=== PATIENT | male | born 1940 | race Caucasian/White ===

== ENCOUNTER → 2020-12-01 | Outpatient (CLI) | payer OTHER | LOC: KOH-I 15:00 | DX: R10.13 Epigastric pain (principal); N20.0 Calculus of kidney | CPT/HCPCS: 74150 ==

== ENCOUNTER → 2020-12-24 | Outpatient (CLI) | payer OTHER ==
[2020-12-24 13:08] LABS: HEMOGLOBIN 13.3 gm/dl (14.0-17.5); RED BLOOD COUNT 3.72 M/UL (4.20-5.50); WHITE BLOOD COUNT 4.9 K/UL (4.5-11.0)
[2020-12-24 13:20] LABS: BUN/CREATININE RATIO 11 (0-10)
== END ==
LOC: LAB 10:59
PROVIDERS: Nurse Practitioner Family
DX: R10.9 Unspecified abdominal pain (principal); I10 Essential (primary) hypertension; K40.90 Unilateral inguinal hernia, without obstruction or gangrene, not specified as recurrent; N20.0 Calculus of kidney
CPT/HCPCS: 36415; 71046; 74018; 80053; 80061; 82150; 83690; 84443; 85025; 93005

== ENCOUNTER → 2021-03-01 | Day surgery (SDC) | payer OTHER ==
[~2021-03-01] MED LIST: ATORVASTATIN CA10 MG PO; B12 PO; CARVEDILOL6.25 MG PO; DONEPEZIL HCL10 MG PO; ELIQUIS5 MG PO; OMEPRAZOLE20 MG PO; OXCARBAZEPINE300 MG PO; SERTRALINE HCL50 MG PO
== END | disposition home or self-care (01) ==
LOC: OR 06:32
DX: K31.9 Disease of stomach and duodenum, unspecified (principal); K29.60 Other gastritis without bleeding; Z12.11 Encounter for screening for malignant neoplasm of colon; F41.9 Anxiety disorder, unspecified; F32.9 Major depressive disorder, single episode, unspecified; G40.909 Epilepsy, unspecified, not intractable, without status epilepticus; Z20.822 Contact with and (suspected) exposure to COVID-19; K21.9 Gastro-esophageal reflux disease without esophagitis; I10 Essential (primary) hypertension; K44.9 Diaphragmatic hernia without obstruction or gangrene; K21.00 Gastro-esophageal reflux disease with esophagitis, without bleeding; K64.0 First degree hemorrhoids; K62.89 Other specified diseases of anus and rectum; R10.9 Unspecified abdominal pain
CPT/HCPCS: 43239; G0121; J2704; J7040

== ENCOUNTER → 2021-07-14 | Outpatient (CLI) | payer MEDICARE ==
[2021-07-14 11:22] LABS: RED BLOOD COUNT 3.63 M/UL (4.20-5.50)
[2021-07-15 08:13] LABS: A/G RATIO 1.5 (1.2-2.2); ALKALINE PHOSPHATASE, S 103 IU/L (44-121); ALT (SGPT) 12 IU/L (0-44); AST (SGOT) 12 IU/L (0-40); BILIRUBIN, TOTAL 0.3 mg/dL (0.0-1.2); BUN 14 mg/dL (8-27); BUN/CREATININE RATIO 14 (10-24); CALCIUM, SERUM 8.9 mg/dL (8.6-10.2); CARBON DIOXIDE, TOTAL 26 mmol/L (20-29); CHLORIDE, SERUM 108 mmol/L (96-106); CHOLESTEROL, TOTAL 198 mg/dL (100-199); CREATININE, SERUM 1.02 mg/dL (0.76-1.27); EGFR IF AFRICN AM 80 (>59); EGFR IF NONAFRICN AM 70 (>59); GLOBULIN, TOTAL 2.4 g/dL (1.5-4.5); GLUCOSE, SERUM 125 mg/dL (65-99); HDL CHOLESTEROL 32 mg/dL (>39); LDL CHOLESTEROL CALC 131 mg/dL (0-99); LDL/HDL RATIO 4.1 ratio (0.0-3.6); POTASSIUM, SERUM 4.6 mmol/L (3.5-5.2); PROTEIN, TOTAL, SERUM 6.1 g/dL (6.0-8.5); SODIUM, SERUM 144 mmol/L (134-144); T. CHOL/HDL RATIO 6.2 ratio (0.0-5.0); TRIGLYCERIDES 192 mg/dL (0-149); TSH 0.776 uIU/mL (0.450-4.500)
== END ==
LOC: LAB 10:26
PROVIDERS: Nurse Practitioner Family
DX: I10 Essential (primary) hypertension (principal)
CPT/HCPCS: 36415; 80053; 80061; 84443; 85025